=== PATIENT | male | born 1955 | race Caucasian/White ===

== ENCOUNTER 2021-04-16 12:38 | Emergency (ER) | payer OTHER ==
[~2021-04-16] VITALS: Ht 182.9 cm; Wt 102.1 kg
[2021-04-16 15:24] LABS: BASOPHIL 0.7 % (0-2); EOSINOPHIL 0.9 % (0-7); LYMPHOCYTE 28.6 % (15-48); MCHC 33.3 g/dL (32.0-36.0); MPV 9.8 fL (6.0-9.5); NEUTROPHIL 60.3 % (41-80); NRBC 0; PLT 165 K/uL (150-400); RBC 4.83 M/uL (4.70-6.00); RDW 12.9 % (11.5-14.0); WBC 5.6 K/uL (4.0-10.5)
[2021-04-16 15:36] LABS: BUN/CREAT RATIO (CALC) 13.2 RATIO; CREATININE 1.14 mg/dL (0.67-1.17); POTASSIUM 4.3 mmol/L (3.5-5.1)
[2021-04-16] MEDS ORDERED: ANTIVERT25 MG PO (16:14)
== END 2021-04-16 16:30 | disposition home or self-care (01) ==
LOC: FER 12:38
PROVIDERS: Nurse Practitioner Family
DX: H81.10 Benign paroxysmal vertigo, unspecified ear (principal); E11.9 Type 2 diabetes mellitus without complications; Z79.84 Long term (current) use of oral hypoglycemic drugs
CPT/HCPCS: 36415; 70450; 72131; 80048; 85025